=== PATIENT | male | born 1970 | race Hispanic/Latino ===

== ENCOUNTER 2017-12-27 02:56 | Day surgery (SDC) | payer MEDICAID, SELFPAY ==
[2017-12-27] MEDS ORDERED: Morphine 4 MG/ML VIAL ONE ×4 (03:11→07:19)
[2017-12-27] MEDS ORDERED: Ondansetron ODT 8 MG TAB ONE (03:11)
[2017-12-27 03:20] LABS: #Eosinphils 0.2 thou/uL (0.0-0.7); #Lymphocytes 2.5 thou/uL (1.20-3.40); #Monocytes 0.5 thou/uL (0.11-0.59); #Neutrophils 4.7 thou/uL (1.40-6.50); %Basophils 0.3 % (0.0-1.0); %Lymphocytes 31.2 % (21.0-51.0); %Monocytes 6.7 % (0.0-10.0); %Neutrophils 58.9 % (42.0-75.0); Hemoglobin 16.3 g/dL (14.0-18.0); Mean Corpuscular HGB CONC 33.7 g/dL (32.0-36.0); Mean Corpuscular Hemoglobin 30.2 pg (27.0-31.0); Mean Corpuscular Volume 89.5 fl (80.0-94.0); Mean Platelet Volume 7.1 fL (7.4-10.4); Platelet Count 222 thou/uL (130-400); RBC Distribution Width 12.2 % (11.5-14.5); Red Blood Cell (RBC) Count 5.39 mill/uL (4.70-6.10)
[2017-12-27 03:32] LABS: Bilirubin Negative (Negative); Blood, Urine Negative (Negative); Clarity CLEAR (Clear); Glucose, Urine (Dipstick) Negative (Negative); Leukocyte Negative (Negative); Nitrite Negative (Negative); Protein, Urine (Dipstick) Trace mg/dL (Neg-Trace); Specific Gravity, Urine 1.025 (1.002-1.036); pH, Urine 5.5 (5.0-9.0)
[2017-12-27 03:50] LABS: ALT (SGPT) 22 U/L (8-55); AST (SGOT) 19 U/L (5-34); Albumin 4.3 g/dL (3.5-5.0); Alkaline Phosphatase 88 U/L (40-150); Anion Gap 15 mmol/L (10-20); BUN (Urea Nitrogen) 23 mg/dL (8.9-20.6); Bilirubin, Total 0.7 mg/dL (0.2-1.2); Calc. Creatinine Clearance 0 mL/min (70-130); Calcium 9.1 mg/dL (7.8-10.44); Carbon Dioxide 19 mmol/L (22-29); Chloride 108 mmol/L (98-107); Estimated GFR-MDRD 42; Globulin 3.1 g/dL (2.4-3.5); Glucose 138 mg/dL (70-105); Potassium 3.9 mmol/L (3.5-5.1); Protein, Total 7.4 g/dL (6.0-8.3); Sodium 138 mmol/L (136-145)
[2017-12-27] MEDS ORDERED: Iothalamate Meglumine 60% 50 ML VIAL FS ONE (07:42)
--- NOTE | 2017-12-27 07:42 | CT ---
PRELIMINARY REPORT/[facility]/EMERGENCY AFTER HOURS PROCEDURE: EXAM: CT Abdomen and Pelvis Without Intravenous Contrast CLINICAL HISTORY: 47 years old, male; Abdominal pain; Right flank pain: R/O stone TECHNIQUE: Axial computed tomography images of the abdomen and pelvis without intravenous contrast. Coronal refo rmatted images were created and reviewed. COMPARISON: No relevant prior studies available. FINDINGS: Lung bases: Bibasilar linear parenchymal scarring or subsegmental collapse / atelectasis. ABDOMEN: Liver: Unremarkable. Gallbladder and bile ducts: Unremarkable. No calcified stones. No ductal dilation. Pancreas: Unremarkable. No ductal dilation. Spleen: Unremarkable. No splenomegaly. Adrenals: Unremarkable. No mass. Kidneys and ureters: Right hydronephrosis with 5 x 6 mm calcified stone in the distal right ureter, j ust cephalad to the right UVJ. Stomach and bowel: Prior sigmoid colon surgery No obstruction. No mucosal thickening. PELVIS: Appendix: No findings to suggest acute appendicitis. Bladder: Unremarkable. No stones. Reproductive: Prominent prostate gland measuring 4.8 cm transversely. ABDOMEN and PELVIS: Intraperitoneal space: Unremarkable. No free air. No significant fluid collection. Bones/joints: No acute fracture. No dislocation. Soft tissues: Small fat-containing umbilical hernia and right inguinal hernia. Vasculature: Unremarkable. No abdominal aortic aneurysm. Lymph nodes: Unremarkable. No enlarged lymph nodes. IMPRESSION: Right hydronephrosis with 5 x 6 mm calcified stone in the distal right ureter, just cephalad to the r ight UVJ. D. Thank you for allowing us to participate in the care of your patient. Dictated and Authenticated by: Maninder Alfaro MD 12/27/2017 4:12 AM Central Time ([place] & [place]) FINAL REPORT EMERGENCY AFTER HOURS ABDOMEN AND PELVIS CT SCAN WITHOUT IV CONTRAST: Date: 12/27/17 Time: 0327 hours FINDINGS/IMPRESSION: Obstructing 0.5 x 0.6 cm diameter distal right ureteral calculus with some proximal upper collecting system and ureteral dilatation and mild adjacent fat stranding. Normal appearing appendix. No other s ignificant acute process. Report in agreement with preliminary report given on-call by Yasmeen. POS: [facility]
[2017-12-27] MEDS ORDERED: Fentanyl 100 MCG/2 ML VIAL ONE ×2 (09:05→09:22)
[2017-12-27] MEDS ORDERED: Famotidine/PF 20 mg/2ml Vial ONE (09:22)
[2017-12-27] MEDS ORDERED: CEFAZOLIN/Water 2 GM/20 ML SYRINGE ONE (09:31)
[2017-12-27] MEDS ORDERED: Promethazine HCl 25 MG/ML VIAL SLOW IVP PRN (10:03)
[2017-12-27] MEDS ORDERED: Ondansetron HCl/PF 4 MG/2 ML Vial IVP PRN (10:03)
[2017-12-27] MEDS ORDERED: Meperidine HCl/PF 25 MG/ML VIAL SLOW IVP PRN (10:03)
[2017-12-27] MEDS ORDERED: Promethazine HCl 25 MG/ML VIAL IM PRN (10:03)
--- NOTE | 2017-12-27 10:48 | RAD ---
RETROGRADE IVP: Date: 12/27/17 HISTORY: Distal right ureteral obstructing calculus. Stent placement. FINDINGS: Portable fluoroscopic spot images are performed. There is a calculus, approximately 0.5 x 0.6 cm, in the distal right ureter. Stent is placed extending up into the right upper collecting system. IMPRESSION: Right ureteral stent placement. Distal right ureteral obstructing calculus. POS: [facility]
--- NOTE | 2017-12-27 14:22 | OP ---
DATE OF PROCEDURE: 12/27/2017 PREOPERATIVE DIAGNOSIS: Right distal ureteral stone with colic. POSTOPERATIVE DIAGNOSIS: Right distal ureteral stone with colic. PROCEDURES PERFORMED: Cystoscopy, right retrograde and right stent. SURGEON: Dr. Micah Santiago ANESTHETIC: General. ESTIMATED BLOOD LOSS: Minimal. FINDINGS: There was a 6 mm distal right ureteral stone. There was a small right ureteral orifice. The stone was quite tight to passage of a wire, but we were able to get a wire by it. There was some right hydro. There was brisk hydronephrotic drip after placement of the stent. There was no signif icant amount of blood or anything to suggest a proximal infection. DRAINS PLACED: 22 cm x 6-Egyptian stent with a string attached. OPERATIVE TECHNIQUE: After obtaining written and verbal consent from the patient after receiving IV antibiotics, he was taken the operating suite. He was placed in the supine position on treatment tab le. PlexiPulses were placed on his lower extremities and turned on. He was given a general anesthet ic and oral intubation. He was placed in the dorsal lithotomy position and sterilely prepped and paul ped. Cystoscopy was performed with a 22-Egyptian sheath. This was well lubricated and passed under di rect vision through the male urethra and into the urinary bladder with aid of a video camera and jazzmine tor. The bladder was filled and emptied a number of times and examined with both a 30 and 70-degree lens. At this point, we initially tried to pass a 5-Egyptian Pollack catheter through the right ureter al orifice, but would not go in probably just because of the size of the ureteral orifice, so a guide wire was brought in and this was passed up to level of stone and had to be manipulated by the stone w hich was a couple of centimeters proximal to the ureteral orifice. Once it was manipulated by it, we nt up easily and there and then a good brisk efflux of urine coming out of the right ureteral orifice . We then passed a 5-Egyptian Pollack catheter over this guidewire up in the region of the mid ureter filled out the collecting system with contrast which came down showing it to be mildly hydronephrotic to moderately hydronephrotic to the level of the right distal ureteral stone where it narrowed down. Guidewire was then replaced. The open-ended catheter was removed and the stent was brought in and placed over the guidewire and pushed up into place with aid of a pusher so its proximal end coiled in the renal pelvis and collecting system and the distal end coiled in the bladder when the wire was re moved. The bladder was drained. Instruments were removed. The string was left attached exiting the urethral meatus. He was at this point taken out of the dorsal lithotomy position, awakened and extu bated and taken by stretcher to the recovery room.
[2017-12-27] MEDS ORDERED: PROPOFOL 200 MG/20 ML VIAL ONE (14:23)
[2017-12-27] MEDS ORDERED: Dexamethasone 20 MG/5 ML VIAL ONE (14:23)
[2017-12-27] MEDS ORDERED: Ondansetron HCl/PF 4 MG/2 ML Vial ONE (14:23)
[2017-12-27] MEDS ORDERED: Succinylcholine Chloride 20 MG/ML 10 ml SYRINGE FS ONE (14:23)
[2017-12-27] MEDS ORDERED: Lidocaine 1% PF 5 ML VIAL ONE (14:23)
--- NOTE | 2017-12-27 20:02 | CON ---
DATE OF CONSULTATION: 12/27/2017 HISTORY OF PRESENT ILLNESS: This is a 47-year-old male who speaks some Mohawk, but his adult daughter has helped with translation. He came to the ER today with a 3-day history of right flank pain that was severe. It was becoming associated with nausea and vomiting really just today. No fevers, no chills, no blood in the urine, no dysuria. In the ER, he had a creatinine that was elevated at 1.74, normal calcium level. Urinalysis was normal. His white count was normal. His hemoglobin was normal. A noncontrast CAT scan was done that I reviewed. It showed a 5 x 6 mm right ureterovesical junction stone with some mild to moderate right hydronephrosis, no renal stones were seen. There is no hydro on the left. The patient reports having 2 episodes very similar to this over the last 6-8 months and he believes that he had stones at that time and he thinks he actually passed them; however, they never were caught or analyzed. He has not seen an urologist. He has never had any surgery for stones. ALLERGIES: He has no drug allergies. MEDICATIONS: He takes no routine medications. PAST MEDICAL HISTORY: He had a history of diverticulitis that was a recurrent issue and in 2009, had a sigmoid colectomy for this by Dr. Leigh. PHYSICAL EXAMINATION: HEENT: Negative. NECK: Negative. LUNGS: Clear. CARDIAC: Without murmurs. ABDOMEN: Soft and nontender but there is significant right upper quadrant and right flank tenderness. EXTREMITIES: Negative. GENITOURINARY: He is not circumcised. He has no phimosis and no abnormality of the penis apart from this. His testicles are both descended without mass or tenderness. IMPRESSION: Right ureteral stone with colic that could not be controlled with medications in the emergency center. PLAN: Plan at this time is to give him some Ancef and do a cystoscopy, right retrograde, possible ureteroscopy if the ureter is large and often in the stone distal placement of a stent. [facility]
== END 2017-12-27 12:13 | disposition home or self-care (01) ==
LOC: ERS 02:56 → ER/OP 07:28 → ERS 12:13
PROVIDERS: ATTEND Urology
PROC: 0T768DZ Dilation of Right Ureter with Intraluminal Device, Via Natural or Artificial Opening Endoscopic (ICD-10-PCS; principal; 2017-12-27)
PROC: 0TC68ZZ Extirpation of Matter from Right Ureter, Via Natural or Artificial Opening Endoscopic (ICD-10-PCS; principal; 2017-12-27)
PROC: BT1DZZZ Fluoroscopy of Right Kidney, Ureter and Bladder (ICD-10-PCS; principal; 2017-12-27)
DX: N13.2 Hydronephrosis with renal and ureteral calculous obstruction (principal); Z90.49 Acquired absence of other specified parts of digestive tract
CPT/HCPCS: 74176; 74420; 80053; 81003; 85025; 96361; 96374; 96376; C1758; J0131; J1100; J2001; J2270; J2405; J2704; J3010; Q9961; S0028